=== PATIENT | male | born 1970 | race Caucasian/White ===

== ENCOUNTER 2017-09-06 09:56 | Emergency (ER) | payer MEDICAID, OTHER ==
[2017-09-06 10:30] VITALS: O2SAT 99
--- NOTE | 2017-09-06 11:39 | C.PDOC ---
History Of Present Illness 47-year-old male, presents to the emergency department with complaints of right knee pain since yesterday. Patient twisted knee when breaking 4x4 piece of wood on his leg. pain aching and mild swelling today. Patient did not take any medications. Denies any limitation to movement of leg, numbness, weakness. Time Seen by Provider: 09/06/17 11:09 Chief Complaint (Nursing): Lower Extremity Problem/Injury History Per: Patient History/Exam Limitations: no limitations Current Symptoms Are (Timing): Still Present Severity: Moderate Past Medical History Reviewed: Historical Data, Nursing Documentation, Vital Signs Vital Signs: Last Vital Signs Temp 98.9 F 09/06/17 11:46 Pulse 99 H 09/06/17 11:46 Resp 17 09/06/17 11:46 BP 120/72 09/06/17 11:46 Pulse Ox 99 09/06/17 13:24 - Medical History PMH: No Chronic Diseases Surgical History: Hernia Repair, Tonsillectomy Family History: States: No Known Family Hx - Social History Hx Alcohol Use: Yes Hx Substance Use: Yes Review Of Systems Constitutional: Negative for: Fever Respiratory: Negative for: Shortness of Breath Musculoskeletal: Positive for: Leg Pain Skin: Negative for: Bruising Neurological: Negative for: Weakness, Numbness Physical Exam - Physical Exam Appears: Well, Non-toxic, No Acute Distress Skin: Warm, Dry, No Rash, No Ecchymosis Head: Atraumatic, Normacephalic Eye(s): bilateral: Normal Inspection Nose: Normal Neck: Normal ROM Chest: Symmetrical Extremity: Capillary Refill (<2 seconds), No Deformity, Other (Right knee: mild swelling and tenderness to medial aspect; no laxity on valgus or varus stress. ) Neurological/Psych: Oriented x3, Normal Speech ED Course And Treatment O2 Sat by Pulse Oximetry: 99 (RA) Pulse Ox Interpretation: Normal Medical Decision Making Medical Decision Making: Patient with right knee after twisting injury. Patient is ambulatory without discomfort. No bony tenderness. No clinical indication for xray. Knee brace applied by CP. Motrin PO was given. Patient advised to rest, ice and take analgesics. Follow up with ortho if symptoms persist Disposition Counseled Patient/Family Regarding: Diagnosis, Need For Followup, Rx Given - Disposition Referrals: Angel Alan MD [Staff Provider] - Disposition: HOME/ ROUTINE Disposition Time: 11:40 Condition: GOOD Additional Instructions: Please apply ice to area 15 minutes three times a day. Take Motrin as needed for pain every 6 hours, with food to not upset stomach. Follow up with orthopedic if pain persists over one week. Prescriptions: Ibuprofen [Motrin] 600 mg PO Q8 #30 tab Instructions: Knee Sprain (ED) Forms: [employer] (Greenlandic) - POA Present On Arrival: None - Clinical Impression Clinical Impression: Right knee sprain - PA / TEMPLATE CLERK / Resident Statement MD/DO has reviewed & agrees with the documentation as recorded. - Scribe Statement The provider has reviewed the documentation as recorded by the Scribe (Dameon Ulrich) All medical record entries made by the Scribe were at my direction and personally dictated by me. I have reviewed the chart and agree that the record accurately reflects my personal performance of the history, physical exam, medical decision making, and the department course for this patient. I have also personally directed, reviewed, and agree with the discharge instructions and disposition.
[2017-09-06 11:47] VITALS: BP 120/72; PULSE 99; RESP 17; TEMP 98.9
== END 2017-09-06 11:54 | disposition home or self-care (01) ==
LOC: C.ER 09:56
DX: S83.91XA Sprain of unspecified site of right knee, initial encounter (principal); X50.9XXA Other and unspecified overexertion or strenuous movements or postures, initial encounter

== ENCOUNTER 2018-02-16 16:01 | Emergency (ER) | payer OTHER ==
[2018-02-16 16:16] VITALS: O2SAT 98
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
[2018-02-16] MEDS ORDERED: Bacitracin 500 Units/gm Oint Foilpak UD ONE (17:18)
--- NOTE | 2018-02-16 17:32 | CT ---
Date of service: 02/16/2018 PROCEDURE: CT HEAD WITHOUT CONTRAST. HISTORY: fall, Frontal contusions COMPARISON: None available. TECHNIQUE: Axial computed tomography images were obtained through the head/brain without intravenous contrast. Radiation dose: Total exam DLP = 894.09 mGy-cm. This CT exam was performed using one or more of the following dose reduction techniques: Automated exposure control, adjustment of the mA and/or kV according to patient size, and/or use of iterative reconstruction technique. FINDINGS: HEMORRHAGE: No intracranial hemorrhage. BRAIN: No mass effect or edema. No atrophy or chronic microvascular ischemic changes. VENTRICLES: Unremarkable. No hydrocephalus. CALVARIUM: Unremarkable. PARANASAL SINUSES: Unremarkable as visualized. No significant inflammatory changes. MASTOID AIR CELLS: Unremarkable as visualized. No inflammatory changes. OTHER FINDINGS: None. IMPRESSION: No evidence of acute intracranial hemorrhage or skull fracture.
--- NOTE | 2018-02-16 17:46 | CT ---
Date of service: 02/16/2018 PROCEDURE: CT MAXILLOFACIAL BONES WITHOUT CONTRAST HISTORY: top teeth, fell on face COMPARISON: None TECHNIQUE: Contiguous axial CT images of the maxillofacial bones were obtained. Coronal and sagittal reformats were generated. Radiation dose: Total exam DLP = 725.84 mGy-cm. This CT exam was performed using one or more of the following dose reduction techniques: Automated exposure control, adjustment of the mA and/or kV according to patient size, and/or use of iterative reconstruction technique. FINDINGS: NASAL BONES: Unremarkable. ORBITS: Unremarkable. PARANASAL SINUSES/ MASTOIDS: Clear. MAXILLA: There is a small fracture at the anterior aspect of the maxilla associated extraction of the anterior teeth MANDIBLE/ TEMPOROMANDIBULAR JOINTS: Unremarkable. SKULL BASE: Unremarkable. TEMPORAL BONES: Middle ears and mastoid grossly unremarkable. OTHER FINDINGS: None. IMPRESSION: Small fracture at the anterior aspect of the maxillary bone associated with avulsion of the incisor teeth
[2018-02-16 17:58] VITALS: BP 131/69; PULSE 59; RESP 20; TEMP 98.1
== END 2018-02-16 17:30 | disposition home or self-care (01) ==
LOC: C.ER 16:01
DX: S00.83XA Contusion of other part of head, initial encounter (principal); W19.XXXA Unspecified fall, initial encounter; Y93.55 Activity, bike riding; F10.10 Alcohol abuse, uncomplicated; Y90.9 Presence of alcohol in blood, level not specified

== ENCOUNTER 2018-02-17 10:35 | Emergency (ER) | payer OTHER ==
[2018-02-17 10:50] VITALS: RESP 18; TEMP 98.6; O2SAT 100
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
[2018-02-17] MEDS ORDERED: Tdap Vaccine 0.5 ml Vial (10-64 yrs) IM ONE ×2 (11:15→11:27)
[2018-02-17 12:37] VITALS: BP 121/75; PULSE 75
--- NOTE | 2018-02-17 15:10 | RAD ---
Date of service: 02/17/2018 PROCEDURE: Radiographs of the Right Shoulder HISTORY: fall COMPARISON: No prior. FINDINGS: BONES: Normal. No fracture. JOINTS: Normal. Glenohumeral and acromioclavicular joints preserved. No osteoarthritis. SOFT TISSUES: Normal. OTHER FINDINGS: None. IMPRESSION: No evidence of acute fracture or dislocation.
== END 2018-02-17 12:36 | disposition home or self-care (01) ==
LOC: C.ER 10:35
DX: S00.83XD Contusion of other part of head, subsequent encounter (principal); S00.81XD Abrasion of other part of head, subsequent encounter; S49.91XD Unspecified injury of right shoulder and upper arm, subsequent encounter; W19.XXXD Unspecified fall, subsequent encounter; Y93.55 Activity, bike riding